=== PATIENT | male | born 1935 | race Caucasian/White ===

== ENCOUNTER 2018-05-07 17:32 | Emergency (ER) | payer MEDICARE, OTHER ==
[~2018-05-07] VITALS: Ht 185.4 cm; Wt 95.4 kg
[~2018-05-07 17:32] MED LIST: ASPI-1265 PO; ATOR20TA PO; CLOP75TA35 PO; DEXL60CA3 PO; FINA5TAB11; HYT1T PO
[2018-05-07] MEDS ORDERED: QUET50TA PO (18:12)
[2018-05-07] MEDS ORDERED: MINO2.5T19 PO (18:12)
[2018-05-07] MEDS ORDERED: CARSR60C PO (18:12)
[2018-05-07] MEDS ORDERED: AZEL137S4 BOTHNARES (18:12)
[2018-05-07] MEDS ORDERED: OMEP40CA37 PO (18:12)
[2018-05-07] MEDS ORDERED: FLO0.4C PO (18:12)
[2018-05-07] MEDS ORDERED: MYCOL30CR TP (18:12)
[2018-05-07] MEDS ORDERED: DONE5TAB7 PO (18:12)
[2018-05-07] MEDS ORDERED: DIVA125T31 PO (18:12)
[2018-05-07] MEDS ORDERED: MINO10TA16 PO (18:12)
[2018-05-07] MEDS ORDERED: MIDO2.5T14 PO (18:12)
[2018-05-07] MEDS ORDERED: SERT25TA PO (18:12)
[2018-05-07] MEDS ORDERED: normal saline 1000ML IV soln IVB ONE (18:35)
[2018-05-07 19:07] LABS: BASOPHILS % (AUTO) 0.1 % (0-1); EOSINOPHILS # (AUTO) 0.3 X10'3 (0-0.9); EOSINOPHILS % (AUTO) 3.8 % (0-6); HEMATOCRIT 36.1 % (42.0-52.0); LYMPHOCYTES # (AUTO) 0.8 X10'3 (1.1-4.8); LYMPHOCYTES % (AUTO) 10.8 % (21-51); MEAN CORPUSCULAR HEMOGLOBIN 29.5 PG (27.0-31.0); MEAN CORPUSCULAR HGB CONC 33.2 % (33.0-36.5); MEAN CORPUSCULAR VOLUME 88.8 FL (78-98); MEAN PLATELET VOLUME 7.6 FL (7.4-10.4); MONOCYTES # (AUTO) 0.4 X10'3 (0-0.9); MONOCYTES % (AUTO) 5.3 % (2-12); NEUTROPHILS # (AUTO) 5.6 X10'3 (1.8-7.7); PLATELET COUNT 319 X10'3 (140-440); RED BLOOD COUNT 4.06 X10'6 (4.70-6.10); RED CELL DISTRIBUTION WIDTH 14.3 % (11.5-14.5)
[2018-05-07 19:23] LABS: INR 1.1 INR; PARTIAL THROMBOPLASTIN TIME 36 SECONDS (22-32); PROTHROMBIN TIME 11.3 SECONDS (9.0-12.0)
[2018-05-07 19:25] LABS: ALANINE AMINOTRANSFERASE 20 U/L (12-78); ALBUMIN 2.6 G/DL (3.4-5.0); ALBUMIN/GLOBULIN RATIO 0.6 (1.1-1.5); ALKALINE PHOSPHATASE 74 IU/L (46-116); ANION GAP 4 (8-16); ASPARTATE AMINO TRANSFERASE 16 U/L (10-37); BILIRUBIN,TOTAL 0.4 MG/DL (0.1-1.0); BLOOD UREA NITROGEN 12 MG/DL (7-18); BUN/CREATININE RATIO 14.1 (5.4-32.0); CALCIUM 8.8 MG/DL (8.5-10.1); CHLORIDE 101 MMOL/L (99-107); CREATININE 0.85 MG/DL (0.60-1.10); GLUCOSE 104 MG/DL (70-104); MAGNESIUM 2.1 MG/DL (1.5-2.4); POTASSIUM 4.6 MMOL/L (3.5-5.1); SODIUM 138 MMOL/L (135-145); TOTAL CARBON DIOXIDE 32.8 MMOL/L (24-32); eGFR 87 ML/MIN
[2018-05-07 20:06] VITALS: BP 115/79
[2018-05-07 20:21] LABS: CLARITY,URINE CLEAR (Clear); COLOR,URINE YELLOW (Yellow); GLUCOSE, URINE NEGATIVE (Neg); KETONES,URINE NEGATIVE (Neg); LEUKOCYTE ESTERASE ,URINE NEGATIVE (Neg); NITRITES, URINE NEGATIVE (Neg); OCCULT BLOOD,URINE NEGATIVE (Neg); PH,URINE 7.5 (4.8-8.0); PROTEIN,URINE NEGATIVE (Neg); UROBILINOGEN,URINE 0.2 E.U/dL (0.2-1.0)
[2018-05-07 20:28] LABS: UA COLLECTION TYPE CLN CATCH MIDSTREAM
== END 2018-05-07 22:23 | disposition home or self-care (01) ==
LOC: ER 17:33
DX: E86.0 Dehydration (principal); R05 Cough; I25.10 Atherosclerotic heart disease of native coronary artery without angina pectoris; K21.9 Gastro-esophageal reflux disease without esophagitis; Z95.0 Presence of cardiac pacemaker; Z79.82 Long term (current) use of aspirin
CPT/HCPCS: 36415; 71045; 80053; 81003; 83605; 83735; 84145; 85025; 85610; 85730; 87040; 93005; 96360; 99285; J7030

== ENCOUNTER 2018-05-10 12:42 | Emergency (ER) | payer MEDICARE, OTHER ==
[~2018-05-10] VITALS: Ht 182.9 cm; Wt 97.0 kg
[~2018-05-10 12:42] MED LIST changes: -ATOR20TA PO; +AZEL137S4 BOTHNARES; +CARSR60C PO; -CLOP75TA35 PO; -DEXL60CA3 PO; +DIVA125T31 PO; +DONE5TAB7 PO; +FLO0.4C PO; -HYT1T PO; +MIDO2.5T14 PO; +MINO10TA16 PO; +MINO2.5T19 PO; +MYCOL30CR TP; +OMEP40CA37 PO; +QUET50TA PO; +SERT25TA PO
[2018-05-10] MEDS ORDERED: methylPREDNISolone sod succ 125mg/2ml vial IV ONE (12:55)
[2018-05-10 13:45] LABS: BASOPHILS % (AUTO) 0.3 % (0-1); EOSINOPHILS # (AUTO) 0.2 X10'3 (0-0.9); EOSINOPHILS % (AUTO) 3.3 % (0-6); HEMATOCRIT 35.8 % (42.0-52.0); LYMPHOCYTES % (AUTO) 17.1 % (21-51); MEAN CORPUSCULAR HEMOGLOBIN 29.6 PG (27.0-31.0); MEAN CORPUSCULAR HGB CONC 33.5 % (33.0-36.5); MEAN CORPUSCULAR VOLUME 88.3 FL (78-98); MEAN PLATELET VOLUME 7.5 FL (7.4-10.4); MONOCYTES # (AUTO) 0.3 X10'3 (0-0.9); MONOCYTES % (AUTO) 5.4 % (2-12); NEUTROPHILS # (AUTO) 4.5 X10'3 (1.8-7.7); NEUTROPHILS % (AUTO) 73.9 % (42-75); PLATELET COUNT 343 X10'3 (140-440); RED BLOOD COUNT 4.06 X10'6 (4.70-6.10)
[2018-05-10 14:02] LABS: ALANINE AMINOTRANSFERASE 19 U/L (12-78); ALBUMIN 2.7 G/DL (3.4-5.0); ALBUMIN/GLOBULIN RATIO 0.6 (1.1-1.5); ALKALINE PHOSPHATASE 81 IU/L (46-116); ANION GAP 7 (8-16); ASPARTATE AMINO TRANSFERASE 15 U/L (10-37); BILIRUBIN,TOTAL 0.5 MG/DL (0.1-1.0); BLOOD UREA NITROGEN 9 MG/DL (7-18); BUN/CREATININE RATIO 9.1 (5.4-32.0); CALCIUM 8.9 MG/DL (8.5-10.1); CHLORIDE 102 MMOL/L (99-107); CREATININE 0.99 MG/DL (0.60-1.10); GLUCOSE 123 MG/DL (70-104); POTASSIUM 3.8 MMOL/L (3.5-5.1); SODIUM 139 MMOL/L (135-145); TOTAL CARBON DIOXIDE 30.4 MMOL/L (24-32); TOTAL PROTEIN 7.4 G/DL (6.4-8.2); eGFR 73 ML/MIN
[2018-05-10 14:07] LABS: CLARITY,URINE SLIGHTLY CLOUDY (Clear); COLOR,URINE YELLOW (Yellow); PROTEIN,URINE TRACE mg/dl (Neg); UA COLLECTION TYPE CLN CATCH MIDSTREAM
[2018-05-10 14:08] LABS: GLUCOSE, URINE NEGATIVE (Neg); KETONES,URINE NEGATIVE (Neg); LEUKOCYTE ESTERASE ,URINE SMALL (Neg); NITRITES, URINE NEGATIVE (Neg); OCCULT BLOOD,URINE LARGE (Neg); UROBILINOGEN,URINE 0.2 E.U/dL (0.2-1.0)
[2018-05-10 14:09] LABS: MAGNESIUM 1.9 MG/DL (1.5-2.4); TROPONIN I < 0.04 NG/ML (0.0-0.05)
[2018-05-10 14:09] LABS: WBC,URINE 30-50 /HPF (0-4)
[2018-05-10 14:10] LABS: BACTERIA,URINE 1+ /HPF (Neg); CELLULAR CAST 0-4 /LPF (NEGATIVE); MUCUS STRANDS MANY /LPF (Neg); RBC,URINE TNTC /HPF (0-2); SQUAMOUS EPITHELIAL CELL,UR FEW /LPF (FEW)
[2018-05-10 14:18] LABS: INR 1.1 INR; PARTIAL THROMBOPLASTIN TIME 34 SECONDS (22-32); PROTHROMBIN TIME 11.3 SECONDS (9.0-12.0)
[2018-05-10] MEDS ORDERED: furosemide 10 MG/1 ML 10ml inj IV ONE (14:20)
[2018-05-10] MEDS ORDERED: CEPH500C5 PO (14:27)
[2018-05-10] MEDS ORDERED: cephalexin 250mg capsule PO ONE (14:30)
[2018-05-10 15:30] VITALS: BP 118/72
== END 2018-05-10 15:34 | disposition home or self-care (01) ==
LOC: ER 12:43
DX: N39.0 Urinary tract infection, site not specified (principal); I50.9 Heart failure, unspecified; I25.10 Atherosclerotic heart disease of native coronary artery without angina pectoris; K21.9 Gastro-esophageal reflux disease without esophagitis; Z95.0 Presence of cardiac pacemaker; Z79.899 Other long term (current) drug therapy; Z79.82 Long term (current) use of aspirin; Z79.2 Long term (current) use of antibiotics
CPT/HCPCS: 36415; 71045; 80053; 81001; 83605; 83735; 83880; 84145; 84484; 85025; 85610; 85730; 87040; 87088; 93005; 96374; 96375; 99284; J1940; J2930

== ENCOUNTER 2018-06-30 07:06 | Inpatient (IN) | payer MEDICARE, OTHER ==
[~2018-06-30] VITALS: Ht 182.9 cm; Wt 100.0 kg
[~2018-06-30 07:06] MED LIST changes: +CEPH500C5 PO
[2018-06-30 08:08] LABS: BASOPHILS % (AUTO) 0.5 % (0-1); EOSINOPHILS # (AUTO) 0.4 X10'3 (0-0.9); EOSINOPHILS % (AUTO) 7.7 % (0-6); HEMATOCRIT 37.8 % (42.0-52.0); HEMOGLOBIN 12.3 g/dl (14.0-17.9); LYMPHOCYTES # (AUTO) 0.8 X10'3 (1.1-4.8); LYMPHOCYTES % (AUTO) 15.3 % (21-51); MEAN CORPUSCULAR HEMOGLOBIN 29.4 PG (27.0-31.0); MEAN CORPUSCULAR HGB CONC 32.6 % (33.0-36.5); MEAN CORPUSCULAR VOLUME 90.2 FL (78-98); MONOCYTES # (AUTO) 0.5 X10'3 (0-0.9); MONOCYTES % (AUTO) 8.8 % (2-12); NEUTROPHILS # (AUTO) 3.5 X10'3 (1.8-7.7); NEUTROPHILS % (AUTO) 67.7 % (42-75); PLATELET COUNT 233 X10'3 (140-440); RED BLOOD COUNT 4.19 X10'6 (4.70-6.10); RED CELL DISTRIBUTION WIDTH 14.4 % (11.5-14.5); WHITE BLOOD COUNT 5.2 X10'3 (4.5-11.0)
[2018-06-30 08:15] LABS: INR 1.1 INR; PARTIAL THROMBOPLASTIN TIME 31 SECONDS (22-32); PROTHROMBIN TIME 11.2 SECONDS (9.0-12.0)
[2018-06-30 08:18] LABS: ALANINE AMINOTRANSFERASE 17 U/L (12-78); ALBUMIN 3.7 G/DL (3.4-5.0); ALBUMIN/GLOBULIN RATIO 0.9 (1.1-1.5); ALKALINE PHOSPHATASE 80 IU/L (46-116); ANION GAP 8 (8-16); ASPARTATE AMINO TRANSFERASE 13 U/L (10-37); BILIRUBIN,TOTAL 0.8 MG/DL (0.1-1.0); BLOOD UREA NITROGEN 11 MG/DL (7-18); BUN/CREATININE RATIO 12.6 (5.4-32.0); CALCIUM 8.8 MG/DL (8.5-10.1); CHLORIDE 101 MMOL/L (99-107); CREATININE 0.87 MG/DL (0.60-1.10); GLUCOSE 94 MG/DL (70-104); POTASSIUM 4.1 MMOL/L (3.5-5.1); SODIUM 140 MMOL/L (135-145); TOTAL CARBON DIOXIDE 30.7 MMOL/L (24-32); TOTAL PROTEIN 7.7 G/DL (6.4-8.2); eGFR 84 ML/MIN
[2018-06-30] MEDS ORDERED: furosemide 10 MG/1 ML 10ml inj IV ONE (08:35)
[2018-06-30] MEDS ORDERED: morphine 4 MG/ML inj SYRINge IV PRN (09:55)
[2018-06-30] MEDS ORDERED: magnesium 2GM in 50ml NS 50 ML IV PRN (09:55)
[2018-06-30] MEDS ORDERED: potassium Cl 40MEQ/NS 500ml 500 ML IV PRN ×2 (09:55)
[2018-06-30] MEDS ORDERED: magnesium Cl slow-release 64mg tablet PO PRN (09:55)
[2018-06-30] MEDS ORDERED: ondansetron/PF 4mg/2ml inj IV PRN (09:55)
[2018-06-30] MEDS ORDERED: HYDROcodone/acetaminophen 5mg/325mg tablet PO PRN (09:55)
[2018-06-30] MEDS ORDERED: ALB0.5UD IH (09:55)
[2018-06-30] MEDS ORDERED: magnesium 4gm in 100ml NS 100 ML IV PRN (09:55)
[2018-06-30] MEDS ORDERED: potassium Cl 20 mEq SR tablet PO PRN ×2 (09:55)
[2018-06-30] MEDS ORDERED: CHOL2000 PO (09:55)
[2018-06-30] MEDS ORDERED: acetaminophen 325mg tablet PO PRN ×2 (09:55)
[2018-06-30] MEDS ORDERED: LEVO500T89 PO (09:55)
[2018-06-30] MEDS: albuterol 2.5 MG/3 ML nebule NEB SCH ×3 (11:05→21:00)
--- NOTE | 2018-06-30 12:45 | NUR ---
PATIENT EATING LUNCH,FAMILY AT BEDSIDE.
[2018-06-30] MEDS: midodrine tablet 2.5 MG TABLET PO SCH (16:00)
[2018-06-30] MEDS ORDERED: diltiazem SR 60mg capsule (twice daily) PO SCH (20:00)
[2018-06-30] MEDS: divalproex sod 125mg tablet.DR PO SCH (20:33)
[2018-06-30] MEDS: heparin, porcine 5000 units/ml vial SQ SCH (20:33)
[2018-06-30] MEDS: docusate sod 100mg capsule PO SCH (20:33)
[2018-06-30] MEDS ORDERED: diltiazem 30mg tablet PO ONE (20:45)
[2018-06-30] MEDS ORDERED: QUEtiapine 25mg tablet PO SCH (21:00)
--- NOTE | 2018-06-30 21:15 | NUR ---
Patient arrived on floor via hospital bed from the ED after receiving report for Marylin PALACIOS. Patient oriented only to self, cooperative. Vitals taken, placed on equipment monitor phototypesetting, no complaint of pain. Patient on 2L NC. Belongings accompanied
[2018-06-30 21:30] VITALS: BP 143/76
[2018-06-30] MEDS: donepezil 5mg tablet PO SCH (22:56)
[2018-06-30 23:00] VITALS: BP 145/86
[2018-06-30] MEDS ORDERED: diphenhydrAMINE 25mg capsule PO PRN (23:10)
[2018-07-01] MEDS: midodrine tablet 2.5 MG TABLET PO SCH
[2018-07-01] MEDS: diltiazem 30mg tablet PO SCH ×4 (02:00→21:56)
[2018-07-01] MEDS: albuterol 2.5 MG/3 ML nebule NEB SCH ×4 (02:43→21:02)
[2018-07-01 03:00] VITALS: BP 107/52
[2018-07-01 05:45] LABS: ANION GAP 3 (8-16); BLOOD UREA NITROGEN 11 MG/DL (7-18); BUN/CREATININE RATIO 12.4 (5.4-32.0); CALCIUM 8.4 MG/DL (8.5-10.1); CHLORIDE 104 MMOL/L (99-107); CREATININE 0.89 MG/DL (0.60-1.10); GLUCOSE 108 MG/DL (70-104); POTASSIUM 3.8 MMOL/L (3.5-5.1); SODIUM 141 MMOL/L (135-145); TOTAL CARBON DIOXIDE 34.4 MMOL/L (24-32); eGFR 82 ML/MIN
[2018-07-01 06:00] VITALS: BP 113/54
[2018-07-01 06:01] LABS: BASOPHILS % (AUTO) 0.2 % (0-1); EOSINOPHILS # (AUTO) 0.3 X10'3 (0-0.9); EOSINOPHILS % (AUTO) 5.9 % (0-6); HEMATOCRIT 33.2 % (42.0-52.0); HEMOGLOBIN 10.9 g/dl (14.0-17.9); LYMPHOCYTES # (AUTO) 0.7 X10'3 (1.1-4.8); LYMPHOCYTES % (AUTO) 13.6 % (21-51); MEAN CORPUSCULAR HEMOGLOBIN 29.5 PG (27.0-31.0); MEAN CORPUSCULAR HGB CONC 32.7 % (33.0-36.5); MEAN CORPUSCULAR VOLUME 90.3 FL (78-98); MEAN PLATELET VOLUME 8.4 FL (7.4-10.4); MONOCYTES # (AUTO) 0.5 X10'3 (0-0.9); MONOCYTES % (AUTO) 8.9 % (2-12); NEUTROPHILS # (AUTO) 3.7 X10'3 (1.8-7.7); NEUTROPHILS % (AUTO) 71.4 % (42-75); PLATELET COUNT 194 X10'3 (140-440); RED BLOOD COUNT 3.67 X10'6 (4.70-6.10); RED CELL DISTRIBUTION WIDTH 14.5 % (11.5-14.5); WHITE BLOOD COUNT 5.2 X10'3 (4.5-11.0)
--- NOTE | 2018-07-01 06:20 | NUR ---
Problems reprioritized. Patient report given, questions answered & plan of care reviewed with Marta PALACIOS.
[2018-07-01] MEDS: K and/or MAG REPLACEMENT MC SCH (08:00)
[2018-07-01] MEDS: divalproex sod 125mg tablet.DR PO SCH ×2 (08:00→20:00)
[2018-07-01] MEDS ORDERED: furosemide 40mg/4ml inj IV SCH (08:00)
[2018-07-01] MEDS: docusate sod 100mg capsule PO SCH ×2 (08:00→14:36)
[2018-07-01] MEDS: nystatin 15 GM powder TP SCH ×3 (08:00→21:00)
[2018-07-01] MEDS ORDERED: CefTRIAXone 2gm/D5W 50ml 50 ML IV SCH (08:00)
[2018-07-01 11:00] VITALS: BP 161/97
[2018-07-01] MEDS: tamsulosin 0.4mg capsule PO SCH (14:35)
[2018-07-01] MEDS: aspirin 81mg tab.chew PO SCH (14:37)
[2018-07-01] MEDS: pantoprazole 40mg Tablet.DR PO SCH (14:38)
[2018-07-01] MEDS: finasteride 5mg tablet PO SCH (14:40)
[2018-07-01] MEDS: minoxidil 2.5mg tablet PO SCH (14:41)
[2018-07-01] MEDS: heparin, porcine 5000 units/ml vial SQ SCH ×2 (14:43→22:01)
[2018-07-01] MEDS: sertraline 50mg tablet PO SCH (14:44)
[2018-07-01 15:00] VITALS: BP 131/84
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
[2018-07-01 18:00] VITALS: BP 147/69
--- NOTE | 2018-07-01 18:58 | NUR ---
Patient in room PCU 3015. I have received report from Marta PALACIOS and had the opportunity to ask questions and assume patient care.
[2018-07-01] MEDS: donepezil 5mg tablet PO SCH (21:57)
[2018-07-01 22:00] VITALS: BP_SYST 105; BP_SYST 107; BP_DIAS 60; BP_DIAS 65
[2018-07-02 02:00] VITALS: BP 115/61
[2018-07-02] MEDS: diltiazem 30mg tablet PO SCH ×4 (02:56→20:00)
[2018-07-02] MEDS: albuterol 2.5 MG/3 ML nebule NEB SCH ×4 (02:57→20:32)
[2018-07-02 06:00] VITALS: BP 124/72
--- NOTE | 2018-07-02 06:00 | NUR ---
Patient in room PCU 3015. I have received report from SUZANNE Sy and had the opportunity to ask questions and assume patient care.
--- NOTE | 2018-07-02 06:12 | NUR ---
Problems reprioritized. Patient report given, questions answered & plan of care reviewed with Maria Elena RN.
[2018-07-02 06:39] LABS: ALBUMIN 3.1 G/DL (3.4-5.0); ANION GAP 7 (8-16); BLOOD UREA NITROGEN 14 MG/DL (7-18); BUN/CREATININE RATIO 15.2 (5.4-32.0); CALCIUM 8.7 MG/DL (8.5-10.1); CHLORIDE 100 MMOL/L (99-107); CREATININE 0.92 MG/DL (0.60-1.10); GLUCOSE 93 MG/DL (70-104); POTASSIUM 3.7 MMOL/L (3.5-5.1); SODIUM 140 MMOL/L (135-145); TOTAL CARBON DIOXIDE 32.7 MMOL/L (24-32); eGFR 79 ML/MIN
[2018-07-02 06:40] LABS: BASOPHILS % (AUTO) 0.4 % (0-1); EOSINOPHILS # (AUTO) 0.5 X10'3 (0-0.9); EOSINOPHILS % (AUTO) 8.4 % (0-6); HEMATOCRIT 34.7 % (42.0-52.0); HEMOGLOBIN 11.8 g/dl (14.0-17.9); LYMPHOCYTES % (AUTO) 17.7 % (21-51); MEAN CORPUSCULAR HEMOGLOBIN 29.8 PG (27.0-31.0); MEAN CORPUSCULAR HGB CONC 33.9 % (33.0-36.5); MEAN CORPUSCULAR VOLUME 87.9 FL (78-98); MEAN PLATELET VOLUME 8.3 FL (7.4-10.4); MONOCYTES # (AUTO) 0.4 X10'3 (0-0.9); MONOCYTES % (AUTO) 8.2 % (2-12); NEUTROPHILS # (AUTO) 3.6 X10'3 (1.8-7.7); NEUTROPHILS % (AUTO) 65.3 % (42-75); PLATELET COUNT 227 X10'3 (140-440); RED BLOOD COUNT 3.94 X10'6 (4.70-6.10); RED CELL DISTRIBUTION WIDTH 14.5 % (11.5-14.5); WHITE BLOOD COUNT 5.5 X10'3 (4.5-11.0)
[2018-07-02] MEDS: K and/or MAG REPLACEMENT MC SCH (06:58)
[2018-07-02] MEDS: nystatin 15 GM powder TP SCH (08:00)
[2018-07-02] MEDS: finasteride 5mg tablet PO SCH (08:57)
[2018-07-02] MEDS: heparin, porcine 5000 units/ml vial SQ SCH ×2 (08:58→19:07)
[2018-07-02] MEDS: docusate sod 100mg capsule PO SCH ×2 (08:58→19:07)
[2018-07-02] MEDS: tamsulosin 0.4mg capsule PO SCH (08:58)
[2018-07-02] MEDS: pantoprazole 40mg Tablet.DR PO SCH (08:58)
[2018-07-02] MEDS: minoxidil 2.5mg tablet PO SCH (08:58)
[2018-07-02] MEDS: sertraline 50mg tablet PO SCH (08:58)
[2018-07-02] MEDS: aspirin 81mg tab.chew PO SCH (08:58)
[2018-07-02] MEDS: divalproex sod 125mg tablet.DR PO SCH ×2 (08:58→19:07)
[2018-07-02] MEDS ORDERED: magnesium hydroxide 30ml (MOM) UD suspension PO PRN (11:00)
[2018-07-02] MEDS: furosemide 40mg tablet PO SCH (11:31)
[2018-07-02 12:00] VITALS: BP 101/48
[2018-07-02 15:00] VITALS: BP 108/55
[2018-07-02 18:00] VITALS: BP 104/70
--- NOTE | 2018-07-02 18:20 | NUR ---
Problems reprioritized. Patient report given, questions answered & plan of care reviewed with SUZANNE Talbert.
--- NOTE | 2018-07-02 18:30 | NUR ---
Patient in room PCU 3015. I have received report from Maria Elena PALACIOS and had the opportunity to ask questions and assume patient care. Pt in bed, eating dinner. Tabs alarm is on and audible.
[2018-07-02] MEDS: donepezil 5mg tablet PO SCH (20:51)
[2018-07-02] MEDS: temazepam 15mg capsule PO PRN ×2 (20:51→23:45)
[2018-07-02 22:00] VITALS: BP 114/63
[2018-07-03 02:00] VITALS: BP 121/67
[2018-07-03] MEDS: diltiazem 30mg tablet PO SCH ×4 (02:00→20:11)
[2018-07-03] MEDS: albuterol 2.5 MG/3 ML nebule NEB SCH ×4 (03:00→20:03)
[2018-07-03 06:00] VITALS: BP 123/58
--- NOTE | 2018-07-03 06:33 | NUR ---
Problems reprioritized. Patient report given, questions answered & plan of care reviewed with Larisa PALACIOS. Pt tabs is attached.
--- NOTE | 2018-07-03 06:47 | NUR ---
Patient in room PCU 3015. I have received report from LETTY PALACIOS and had the opportunity to ask questions and assume patient care.
[2018-07-03 06:56] LABS: ALBUMIN 3.1 G/DL (3.4-5.0); ANION GAP 6 (8-16); BLOOD UREA NITROGEN 15 MG/DL (7-18); BUN/CREATININE RATIO 17.4 (5.4-32.0); CALCIUM 8.8 MG/DL (8.5-10.1); CHLORIDE 101 MMOL/L (99-107); CREATININE 0.86 MG/DL (0.60-1.10); GLUCOSE 88 MG/DL (70-104); MAGNESIUM 2.3 MG/DL (1.5-2.4); POTASSIUM 3.7 MMOL/L (3.5-5.1); SODIUM 140 MMOL/L (135-145); TOTAL CARBON DIOXIDE 33.3 MMOL/L (24-32); eGFR 86 ML/MIN
[2018-07-03 07:07] LABS: BASOPHILS % (AUTO) 0.4 % (0-1); EOSINOPHILS # (AUTO) 0.5 X10'3 (0-0.9); EOSINOPHILS % (AUTO) 8.7 % (0-6); HEMATOCRIT 33.6 % (42.0-52.0); HEMOGLOBIN 11.1 g/dl (14.0-17.9); LYMPHOCYTES # (AUTO) 1.2 X10'3 (1.1-4.8); LYMPHOCYTES % (AUTO) 20.5 % (21-51); MEAN CORPUSCULAR HEMOGLOBIN 29.6 PG (27.0-31.0); MEAN CORPUSCULAR HGB CONC 33.1 % (33.0-36.5); MEAN CORPUSCULAR VOLUME 89.3 FL (78-98); MEAN PLATELET VOLUME 8.3 FL (7.4-10.4); MONOCYTES # (AUTO) 0.6 X10'3 (0-0.9); MONOCYTES % (AUTO) 10.2 % (2-12); NEUTROPHILS # (AUTO) 3.4 X10'3 (1.8-7.7); NEUTROPHILS % (AUTO) 60.2 % (42-75); PLATELET COUNT 204 X10'3 (140-440); RED BLOOD COUNT 3.77 X10'6 (4.70-6.10); RED CELL DISTRIBUTION WIDTH 14.4 % (11.5-14.5); WHITE BLOOD COUNT 5.7 X10'3 (4.5-11.0)
[2018-07-03] MEDS: sertraline 50mg tablet PO SCH (08:00)
[2018-07-03] MEDS: furosemide 40mg tablet PO SCH (08:00)
[2018-07-03] MEDS: divalproex sod 125mg tablet.DR PO SCH ×2 (08:00→20:26)
[2018-07-03] MEDS: minoxidil 2.5mg tablet PO SCH (08:00)
[2018-07-03] MEDS: aspirin 81mg tab.chew PO SCH (08:00)
[2018-07-03] MEDS: finasteride 5mg tablet PO SCH (08:00)
[2018-07-03] MEDS: docusate sod 100mg capsule PO SCH ×2 (08:00→20:11)
[2018-07-03] MEDS: K and/or MAG REPLACEMENT MC SCH (08:00)
[2018-07-03] MEDS: tamsulosin 0.4mg capsule PO SCH (08:00)
[2018-07-03] MEDS: pantoprazole 40mg Tablet.DR PO SCH (08:00)
--- NOTE | 2018-07-03 08:00 | NUR ---
patient appears still very sedated, pupils equal and reactive. grunts when spoken to but does not open eyes. Charge nurse aware. patient was given restoril on production shift supervisor. I will continue to monitor.
[2018-07-03] MEDS: heparin, porcine 5000 units/ml vial SQ SCH ×2 (08:17→20:12)
[2018-07-03] MEDS: levoFLOXACIN 750MG TABLET PO SCH (11:00)
[2018-07-03 12:09] VITALS: BP 151/85
[2018-07-03 15:00] VITALS: BP 121/70
--- NOTE | 2018-07-03 15:39 | NUR ---
Patient awake now. appropriate in affect, conversing and answering questions. Sitting up in chair. managed to eat a sandwhich.
[2018-07-03 18:00] VITALS: BP 131/70
--- NOTE | 2018-07-03 18:21 | NUR ---
Problems reprioritized. Patient report given, questions answered & plan of care reviewed with Breanna PALACIOS.
[2018-07-03] MEDS: donepezil 5mg tablet PO SCH (20:11)
[2018-07-03 22:49] VITALS: BP 126/67
[2018-07-04] MEDS: diltiazem 30mg tablet PO SCH ×2 (02:18→09:30)
[2018-07-04 02:27] VITALS: BP 139/74
[2018-07-04] MEDS: albuterol 2.5 MG/3 ML nebule NEB SCH ×2 (03:00→08:00)
--- NOTE | 2018-07-04 03:50 | NUR ---
patient c/o itching; administered benedryl.
[2018-07-04 05:59] LABS: BASOPHILS % (AUTO) 0.4 % (0-1); EOSINOPHILS # (AUTO) 0.6 X10'3 (0-0.9); EOSINOPHILS % (AUTO) 10.4 % (0-6); HEMATOCRIT 35.3 % (42.0-52.0); HEMOGLOBIN 11.7 g/dl (14.0-17.9); LYMPHOCYTES % (AUTO) 17.4 % (21-51); MEAN CORPUSCULAR HEMOGLOBIN 29.6 PG (27.0-31.0); MEAN CORPUSCULAR HGB CONC 33.1 % (33.0-36.5); MEAN CORPUSCULAR VOLUME 89.5 FL (78-98); MEAN PLATELET VOLUME 8.1 FL (7.4-10.4); MONOCYTES # (AUTO) 0.4 X10'3 (0-0.9); NEUTROPHILS # (AUTO) 3.6 X10'3 (1.8-7.7); NEUTROPHILS % (AUTO) 63.8 % (42-75); PLATELET COUNT 222 X10'3 (140-440); RED BLOOD COUNT 3.94 X10'6 (4.70-6.10); RED CELL DISTRIBUTION WIDTH 14.3 % (11.5-14.5); WHITE BLOOD COUNT 5.6 X10'3 (4.5-11.0)
[2018-07-04 06:00] VITALS: BP 122/61
[2018-07-04 06:02] LABS: ANION GAP 7 (8-16); BLOOD UREA NITROGEN 15 MG/DL (7-18); BUN/CREATININE RATIO 19.5 (5.4-32.0); CALCIUM 8.5 MG/DL (8.5-10.1); CHLORIDE 102 MMOL/L (99-107); CREATININE 0.77 MG/DL (0.60-1.10); GLUCOSE 87 MG/DL (70-104); MAGNESIUM 2.2 MG/DL (1.5-2.4); POTASSIUM 4.1 MMOL/L (3.5-5.1); SODIUM 141 MMOL/L (135-145); TOTAL CARBON DIOXIDE 32.1 MMOL/L (24-32); eGFR > 90 ML/MIN
--- NOTE | 2018-07-04 06:36 | NUR ---
Problems reprioritized. Patient report given, questions answered & plan of care reviewed with SUZANNE Bryson.
[2018-07-04] MEDS: K and/or MAG REPLACEMENT MC SCH (08:00)
[2018-07-04] MEDS ORDERED: FURO40TA4 PO (09:18)
[2018-07-04] MEDS: docusate sod 100mg capsule PO SCH (09:30)
[2018-07-04] MEDS: furosemide 40mg tablet PO SCH (09:30)
[2018-07-04] MEDS: pantoprazole 40mg Tablet.DR PO SCH (09:30)
[2018-07-04] MEDS: aspirin 81mg tab.chew PO SCH (09:30)
[2018-07-04] MEDS: finasteride 5mg tablet PO SCH (09:30)
[2018-07-04] MEDS: tamsulosin 0.4mg capsule PO SCH (09:30)
[2018-07-04] MEDS: sertraline 50mg tablet PO SCH (09:31)
[2018-07-04] MEDS: divalproex sod 125mg tablet.DR PO SCH (09:31)
[2018-07-04] MEDS: heparin, porcine 5000 units/ml vial SQ SCH (09:32)
[2018-07-04] MEDS: minoxidil 2.5mg tablet PO SCH (09:41)
[2018-07-04] MEDS: levoFLOXACIN 750MG TABLET PO SCH (11:59)
== END 2018-07-04 13:34 | DRG 291 ==
LOC: ER 07:07 → ED HOLD 09:54 → EDBEDREQ 11:54 → PCU 3S 21:15
PROVIDERS: ADMIT Internal Medicine; ATTEND Internal Medicine
DX: I50.33 Acute on chronic diastolic (congestive) heart failure (principal); J18.9 Pneumonia, unspecified organism; G92 Toxic encephalopathy; F03.90 Unspecified dementia, unspecified severity, without behavioral disturbance, psychotic disturbance, mood disturbance, and anxiety; I25.10 Atherosclerotic heart disease of native coronary artery without angina pectoris; I27.81 Cor pulmonale (chronic); F32.9 Major depressive disorder, single episode, unspecified; I27.29 Other secondary pulmonary hypertension; T42.4X5A Adverse effect of benzodiazepines, initial encounter; K21.9 Gastro-esophageal reflux disease without esophagitis; N40.0 Benign prostatic hyperplasia without lower urinary tract symptoms; Z79.82 Long term (current) use of aspirin; Z79.899 Other long term (current) drug therapy; Z95.0 Presence of cardiac pacemaker; Y92.238 Other place in hospital as the place of occurrence of the external cause
CPT/HCPCS: 36415; 71045; 80048; 80053; 83605; 83735; 83880; 84484; 85025; 85610; 85730; 87040; 87070; 93005; 93306; 94640; 94760; 96374; 97116; 97162; 97530; 99285; G0378; J0696; J1644; J1940; Q0163